=== PATIENT | male | born 2000 | race Caucasian/White ===

== ENCOUNTER 2023-08-31 03:22 | Emergency (ER) | payer OTHER, SELFPAY ==
[2023-08-31 03:24] VITALS: BP 148/102
[2023-08-31 04:02] VITALS: BMI 25.6
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
[2023-08-31] MEDS: GENOPTIC 0.3% EYE DROPS 1 DROP OPHTH (04:53)
[2023-08-31] MEDS: TETRACAINE 0.5% OPHTHALMIC SOLUTION 1 DROP OPHTH (04:59)
[2023-08-31 05:05] VITALS: BP 114/76
== END 2023-08-31 05:05 | disposition home or self-care (01) ==
LOC: EMR 03:22
PROVIDERS: EMERGENCY PHYSICIAN Emergency Medicine
DX: H16.133 Photokeratitis, bilateral (principal)
CPT/HCPCS: 99282

== ENCOUNTER 2023-11-08 06:42 | Emergency (ER) | payer OTHER, SELFPAY ==
[2023-11-08 06:44] VITALS: BP 165/103
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
[2023-11-08 08:36] VITALS: BP 126/85
== END 2023-11-08 08:45 | disposition home or self-care (01) ==
LOC: EMR 06:42
PROVIDERS: EMERGENCY PHYSICIAN Emergency Medicine; FAMILY PHYSICIAN Internal Medicine
DX: S30.0XXA Contusion of lower back and pelvis, initial encounter (principal); R19.00 Intra-abdominal and pelvic swelling, mass and lump, unspecified site; S30.811A Abrasion of abdominal wall, initial encounter; R10.9 Unspecified abdominal pain; V86.95XA Unspecified occupant of 3- or 4- wheeled all-terrain vehicle (ATV) injured in nontraffic accident, initial encounter
CPT/HCPCS: 99291; 70450; 72125; 74177; Q9967

== ENCOUNTER 2024-08-17 18:41 | Emergency (ER) | payer SELFPAY ==
[2024-08-17 18:42] VITALS: BP 152/87
[2024-08-17] MEDS: MOTRIN 400 MG PO (20:19)
[2024-08-17] MEDS: PERCOCET 5/325 1 TABLET PO (20:32)
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
[2024-08-17] MEDS: BACITRACIN OINTMENT 8 APPLIC TOPICAL (21:52)
[2024-08-17] MEDS: LET TOPICAL ANESTHETIC GEL 3 ML TOPICAL (21:52)
[2024-08-17 21:55] VITALS: BP 148/60
== END 2024-08-17 21:58 | disposition home or self-care (01) ==
LOC: EMR 18:41
PROVIDERS: EMERGENCY PHYSICIAN Emergency Medicine; FAMILY PHYSICIAN Internal Medicine
DX: T24.202A Burn of second degree of unspecified site of left lower limb, except ankle and foot, initial encounter (principal); T31.0 Burns involving less than 10% of body surface; X08.8XXA Exposure to other specified smoke, fire and flames, initial encounter
CPT/HCPCS: 16020; 99282

== ENCOUNTER 2025-02-02 04:41 | Emergency (ER) | payer OTHER, SELFPAY ==
[2025-02-02 04:43] VITALS: BP 143/88
[2025-02-02 05:06] VITALS: BMI 26.5
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
[2025-02-02] MEDS: OCUFLOX 2 DROP OPHTH (06:24)
== END 2025-02-02 06:43 | disposition home or self-care (01) ==
LOC: EMR 04:41
PROVIDERS: EMERGENCY PHYSICIAN Emergency Medicine
DX: H16.139 Photokeratitis, unspecified eye (principal); S05.02XA Injury of conjunctiva and corneal abrasion without foreign body, left eye, initial encounter; S05.01XA Injury of conjunctiva and corneal abrasion without foreign body, right eye, initial encounter; W89.0XXA Exposure to welding light (arc), initial encounter; Y99.0 Civilian activity done for income or pay
CPT/HCPCS: 99283